=== PATIENT | male | born 1965 | race Caucasian/White ===

== ENCOUNTER 2022-04-14 08:16 | Day surgery (SDC) | payer OTHER ==
[~2022-04-14 08:16] MED LIST: LACTATED RINGERS 1,000 ML IV SCH
[2022-04-14 08:52] LABS: Glucose,Whole Blood 113 mg/dL (70-110)
[2022-04-14 08:53] VITALS: TEMP 97.8
[2022-04-14] MEDS ORDERED: PROPOFOL 10 MG/ML 20 ML VIAL IV ONE (10:06)
[2022-04-14] MEDS ORDERED: LACTATED RINGERS 1,000 ML IV ONE (10:24)
--- NOTE | 2022-04-14 10:26 | P.PCN ---
Date of Procedure: 04/14/22 Procedure(s) Performed: BRIEF HISTORY: Patient is a 57-year-old pleasant white male scheduled for an elective colonoscopy as a part of positive cologuard. PROCEDURE PERFORMED: Colonoscopy with snare polypectomy. PREOPERATIVE DIAGNOSIS: Positive cologuard. IV sedation per Anesthesia. PROCEDURE: After informed consent was obtained, the patient, was brought into the endoscopy unit. IV sedation was administered by Anesthesia under continuous monitoring. Digital rectal examination was normal. Initially the Olympus CF-160 flexible video colonoscope was then inserted in the rectum, gradually advanced into the cecum without any difficulty. Careful examination was performed as the scope was gradually being withdrawn. Ileocecal valve and the appendiceal orifice were visualized and appeared normal. Prep was excellent. Mucosa of the cecum, ascending colon, transverse colon, descending colon, appeared normal. In the sigmoid: There was a 5 mm polyp that was removed by snare polypectomy. Rest of the sigmoid colon, and rectum appeared normal. Retroflexion was performed in the rectum and no lesions were seen. The patient tolerated the procedure well. IMPRESSION: 5 mm; sigmoid polyp status post polypectomy Rest of the colon appeared normal RECOMMENDATIONS: Findings of this examination were discussed with the patient as well as his family. He was advised to follow with the biopsy results area and if the biopsy reveals adenoma he can have a repeat colonoscopy in 5 years..
[2022-04-14 10:57] VITALS: BP 152/81; PULSE 66; RESP 20
== END 2022-04-14 11:16 | disposition home or self-care (01) ==
LOC: ORWHC2ENDO 08:16
PROVIDERS: ATTEND Internal Medicine Gastroenterology
DX: D12.5 Benign neoplasm of sigmoid colon (principal); I10 Essential (primary) hypertension; E11.9 Type 2 diabetes mellitus without complications; G47.33 Obstructive sleep apnea (adult) (pediatric); Z79.82 Long term (current) use of aspirin; Z79.899 Other long term (current) drug therapy; Z79.84 Long term (current) use of oral hypoglycemic drugs
CPT/HCPCS: 88305; 45385; J2704